=== PATIENT | male | born 1965 | race Caucasian/White ===

== ENCOUNTER 2019-07-13 10:51 | Emergency (ER) | payer BC ==
--- OUTSIDE RECORDS SUMMARY | 2019-07-13 11:08 | XMS REPORT | Summary of Care ---
:1965 Author Organization [facility] Address [address] [facility] [place] [address] Care Team Providers Name Role Phone Kiel Figueroa MD Primary Care Provider Reason for Visit Reason Comments Weight Gain Obesity Follow Up Encounter Details Date Type Department Care Team Description 06/22/2019 Office Visit [facility], Non morbid obesity, unspecified obesity type (Primary Dx); Bariatrics - Abiel Simmons MD Body mass index (BMI) of 33.0-33.9 in adult; [address] [place] Essential hypertension; [address] [place] [address] Gastroesophageal reflux disease, esophagitis presence not specified [place] [address] Allergies Active Allergy Reactions Severity Noted Date Comments Tape: Silk Or Adhesive Rash 01/19/2009 documented as of this encounter (statuses as of 06/25/2019) Medications Medication Sig Dispensed Refills Start Date End Date Status Hydrocodone-Acetamin Take 10-325 mg by 0 Active ophen (LORTAB PO) mouth. buPROPion Take 300 mg by mouth 0 Active (WELLBUTRIN XL) 300 DAILY. MG Oral TABLET SR 24 HR duloxetine Take 20 mg by mouth 0 Active (CYMBALTA) 20 MG TWICE DAILY. Oral CAPSULE ENTERIC COATED PARTICLES pregabalin (LYRICA) Take 100 mg by mouth 0 Active 100 MG Oral Cap TWICE DAILY. pantoprazole Take 1 Tab by mouth 60 Tab 3 11/20/2018 Active (PROTONIX) 40 MG DAILY. Please take Oral Tab EC Pantoprazole 40mg tablet once daily for 6 months documented as of this encounter (statuses as of 06/25/2019) Active Problems Problem Noted Date Abdominal pain, epigastric 10/14/2018 Overview: Added automatically from request for surgery [id number] Symptomatic cholelithiasis 01/23/2017 Balanitis 07/19/2016 Prosthetic joint infection 01/21/2012 Obesity 10/02/2011 WILLIAM (obstructive sleep apnea) 10/02/2011 Lumbar degenerative disc disease 08/24/2011 BMI 35.0-35.9,adult 08/24/2011 Lumbar spondylosis 12/29/2010 Elbow pain 11/29/2009 Aftercare following joint replacement 11/29/2009 Pain in joint, pelvic region and thigh 12/09/2008 Derangement of medial meniscus 09/07/2008 Sciatica 09/07/2008 Low Back Pain 09/07/2008 Internal derangement of knee 09/07/2008 Displacement of lumbar intervertebral disc 09/07/2008 Rotator cuff disorder 09/07/2008 GERD (gastroesophageal reflux disease) 09/07/2008 Depression 09/07/2008 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 05/28/2008 Vitamin D deficiency documented as of this encounter (statuses as of 06/25/2019) Immunizations Name Administration Dates Next Due Depo Medrol (80mg) 04/25/2016, 02/24/2016, 04/28/2015, 03/05/2014, 11/06/2013 Lidocaine 1% (Not Billed) 04/25/2016, 02/24/2016, 04/28/2015, 03/05/2014, 11/06/2013 documented as of this encounter Social History Tobacco Use Types Packs/Day Years Used Date Never Smoker Smokeless Tobacco: Never Used Alcohol Use Drinks/Week oz/Week Comments No coffee 3-4 cups Sex Assigned at Date Recorded Not on file Job Start Date Occupation Industry Not on file Not on file Not on file Travel History Travel Start Travel End No recent travel history available. documented as of this encounter Last Filed Vital Signs Vital Sign Reading Time Taken Comments Blood Pressure 110/62 06/22/2019 3:49 PM EDT Pulse 74 06/22/2019 3:49 PM EDT Temperature - - Respiratory Rate - - Oxygen Saturation 98% 06/22/2019 3:49 PM EDT Inhaled Oxygen Concentration - - Weight 123 kg (271 lb 1.6 oz) 06/22/2019 3:49 PM EDT Height 190.5 cm (6' 3") 06/22/2019 3:49 PM EDT Body Mass Index 33.89 06/22/2019 3:49 PM EDT documented in this encounter Progress Notes Iris Anderson MD - 06/22/2019 3:00 PM EDT PATIENT: Prasanth Talavera : 1965 DATE OF SERVICE: 06/22/2019 REFERRING PRACTITIONER: Ronni PRIMARY CARE PROVIDER: Kiel Figueroa Chief Complaint Patient presents with Weight Gain Obesity Follow Up HISTORY OF PRESENT ILLNESS: Prasanth Talavera is a 53-y.o. male who presents for follow up treatment of obesity and relateddiseases. He reports no new medical issues in the interim. His dietary compliance as reported is fair. The patient is not skipping meals. He is keeping a consistent food journal. He is eating about an unknown number of calories per day. He is not getting adequate protein. The patient reports no regular exercise. Past Medical History: Diagnosis Date Acute coronary syndrome (HCC) Atrial fibrillation (HCC) had one episode in april 2008/ lasted for 8 hrs / corrected with drugs./ had cardiac evaluation had echo was good/ done in [facility] controlled by [facility] Cardiac dysrhythmia Depression with anxiety 09/07/2008 stable Derangement of medial meniscus 09/07/2008 right knee Displacement of lumbar intervertebral disc 09/07/2008 L4-L5 / L5-S1/ had epidural shots Factor V Leiden mutation (HCC) one copy/ father had 2 copies/ no personal history of DVT or other clots. 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 Sciatica 09/07/2008 Sinusitis, chronic Vitamin D deficiency Past Surgical History: Procedure Laterality Date ARTHROSCOPY KNEE Left 07/13/2015 Procedure: ARTHROSCOPY KNEE LEFT; Surgeon: Kranthi Hanks MD; Location: [facility] MAIN OR COLONOSCOPY 02/21/2010 Procedure:COLONOSCOPY; Surgeon:DANIELLE STONE; Location:[facility] SAME DAY SURGERY; Laterality:N/A KNEE ARTHROSCOPY 1998 & 02/2005 Rt x2 LAPAROSCOPIC CHOLECYSTECTOMY N/A 01/23/2017 Procedure: LAPAROSCOPIC CHOLECYSTECTOMY; Surgeon: Arnulfo Haq MD; Location : [facility] MAIN OR NERVE BLOCK (OFFICE) - SCIATIC 08/2005 & 09/2005 Interlaminar lumbar epidural steroid block w/ epidurography OTHER HERNIA REPAIR Rt inguinal DE EGD TRANSORAL BIOPSY SINGLE/MULTIPLE N/A 11/05/2018 Procedure: EGD WITH BIOPSY; Surgeon: Arnulfo Haq MD; Location: [facility] MAIN OR DE EXCISION TURBINATE,SUBMUCOUS 1999 DE REMOVAL GALLBLADDER 01/23/2017 Dr. Haq DE REMOVE BENIGN THYROID LESION DE REPAIR OF NASAL SEPTUM 1999 level 2 endoscopic sinus surgery DE SHOULDER SURG PROC UNLISTED REVISION HIP REPLACEMENT 01/16/12 right REVISION HIP REPLACEMENT 04/02/12 right ROTATOR CUFF REPAIR 09/2003 Rt, open rotator cuff repair TENDON, FLEX, REPAIR ADVANCE 1987 tendon repair nos/ left index finger TOTAL HIP REPLACEMENT 01/24/09 right TOTAL KNEE REPLACEMENT 01/24/09 right UNLISTED PROCEDURE,MUSCULOSKELE Family History Problem Relation Age of Onset Heart Mother Heart Disease Mother Hypertension Mother Depression/Depressed Mother GI Mother Psychiatry Mother Diabetes Father niddm Clotting Disorder Father Heart Disease Father Hypertension Father Arthritis Father Cancer Father colon cancer Depression/Depressed Father Blood Disease Father factor V leuiden Genetic Father Psychiatry Father Obesity Brother Depression/Depressed Sister Psychiatry Sister Anesth Problems No family history Kidney Disease No family history Thyroid Disease No family history Alcohol/Drug No family history Allergies No family history Asthma No family history Genitourinary () No family history High Cholesterol No family history Seizures No family history Stroke No family history Respiratory No family history Thyroid No family history Social History Tobacco Use Smoking status: Never Smoker Smokeless tobacco: Never Used Substance Use Topics Alcohol use: No Comment: coffee 3-4 cups Current Outpatient Medications Medication Sig buPROPion (WELLBUTRIN XL) 300 MG Oral TABLET SR 24 HR Take 300 mg by mouth DAILY. duloxetine (CYMBALTA) 20 MG Oral CAPSULE ENTERIC COATED PARTICLES Take 20 mg by mouth TWICE DAILY. Hydrocodone-Acetaminophen (LORTAB PO) Take 10-325 mg by mouth. pantoprazole (PROTONIX) 40 MG Oral Tab EC Take 1 Tab by mouth DAILY. Please take [id number] tablet once daily for 6 months pregabalin (LYRICA) 100 MG Oral Cap Take 100 mg by mouth TWICE DAILY. No current facility-administered medications for this visit. Allergies Allergen Reactions Tape: Silk Or Adhesive Rash REVIEW OF SYSTEMS: CONSTITUTIONAL: Negative RESPIRATORY: Negative CARDIOVASCULAR: Negative GASTROINTESTINAL: Negative. GENITOURINARY:Negative MUSCULOSKELETAL: Negative NEUROLOGICAL: Negative. PSYCH: Negative. There are no exam notes on file for this visit. PHYSICAL EXAMINATION: VITALS: BP 110/62 | Pulse 74 | Ht 6' 3" (1.905 m) | Wt 271 lb 1.6 oz (123 kg ) | SpO2 98% | BMI33.89 kg/m BODY COMPOSITION AND MEASUREMENTS: BODY COMPOSITION HISTORY Body Composition 01/13/2019 06/05/2019 06/22/2019 Weight 274 lb 14.4 oz 274 lb 1.6 oz 271 lb 1.6 oz LEAN BODY MASS (lbs) - 175.9 172.8 BODY FAT MASS (lbs) - 98.2 98.3 BMI (Calculated) - 34.26 33.89 Body Fat % - 35.8 36.3 BASAL METABOLIC RATE (kcal) - 4 3 EXCESS BODY FAT (lbs) - 67 67.9 VISCERAL FAT AREA (cm2) - 228.6 227 LEAN BODY MASS DEFICIT (lbs) - 0 0 NECK CIRCUMFERENCE (in) - 18 - WAIST CIRCUMFERENCE (in) - 50 - HIP CIRCUMFERENCE (in) - 48 - GENERAL: No acute distress; moderately obese PULMONARY: Clear to auscultation bilaterally CARDIOVASCULAR: Regular rate and rhythm; no murmurs, no rubs, no gallops ABDOMEN: Soft, non tender, no organomegaly, no masses appreciated. truncal adiposity present MUSCULOSKELETAL: no clubbing, cyanosis or edema NEUROLOGICAL: Alert and oriented x 3 PSYCH: Appropriate mood and affect LABORATORY STUDIES: Triglycerides Date Value Ref Range Status 09/23/2013 145 10 - 150 mg/dl Final HDL Cholesterol Date Value Ref Range Status 09/23/2013 23 >40 mg/dl Final LDL Cholesterol Date Value Ref Range Status 09/23/2013 108 88 - 162 MG/DL Final Comment: TRIGLYCERIDES GREATER THAN 400 MG/DL INVALIDATES THE LDL RESULT VIT D, 25-HYDROXY Date Value Ref Range Status 09/23/2013 24.3 30.0 - 100.0 ng/ml Final Comment: Comment: <20 ng/ml Deficiency 20 - <30 ng/ml Insufficient 30 - 100 ng/ml Sufficiency >100 ng/ml Potential Toxicity TSH Date Value Ref Range Status 09/23/2013 1.78 0.32 - 5.00 uIu/ml Final IMPRESSION: ICD-9-CM ICD-10-CM 1. Non morbid obesity, unspecified obesity type 278.00 E66.9 2. Body mass index (BMI) of 33.0-33.9 in adult V85.33 Z68.33 3. Essential hypertension 401.9 I10 4. Gastroesophageal reflux disease, esophagitis presence not specified 530.81 K21.9 PLAN: Prasanth Talavera is a 53-y.o. year-old male with Body mass index is 33.89 kg/m.. Obesity Class I Weight is decreased 3.0 lbs in the interim; this reflects a(n) decrease in lean body mass of 3.1 lbs(2.2 lbs of which was total body water) and increase in fat mass of 0.5 lbs Continue with 1600 calories per day; 45 g protein per meal; 30 g carbs per meal Moderate intensity exercise for 30 minutes, at least 5 days per week Hypertension Well controlled No medication changes at this time GERD Likely some element of fat mass effect Expect improvement in symptoms as weight loss progresses Follow up: 4 weeks Author: Iris Anderson MD 06/25/2019 10:22 documented in this encounter Plan of Treatment Date Type Specialty Care Team Description 07/08/2019 Office Visit Urology Carley Petersen CRNP [address] [place] [address] 07/24/2019 Office Visit Bariatrics Iris Anderson MD [address] [place] [place] [address] Health Maintenance Due Date Last Done Comments HIV SCREENING 1978 ZOSTER IMMUNIZATION SERIES 2013 (1 of 2) LIPID DISORDER SCREENING 09/23/2018 09/23/2013 INFLUENZA VACCINE (#1) 2019 COLONOSCOPY SCREENING 02/22/2020 02/21/2010 DEPRESSION SCREENING 06/05/2020 06/05/2019, 08/24/2011 DIABETES SCREENING 06/05/2020 06/05/2019, 10/14/2018, 01/03/2017, Additional history exists HEPATITIS C SCREENING Completed 09/23/2013 HPV IMMUNIZATION SERIES Aged Out No longer eligible based on patient's age to complete this topic MENINGOCOCCAL VACCINE IMM Aged Out No longer eligible based on patient's age to complete this topic PNEUMOCOCCAL 0-64 YRS Aged Out No longer eligible based on patient's age to complete this topic documented as of this encounter Implants Implanted Type Area Bunch Breaker Machine Operator Device Shelf Model / Identifier Expiration Serial / Lot Date Bone Cement, Double 80gm - [id number] Right: DEPUY [id number] / Implanted: Qty: 1 on 01/24/2009 at [facility] / [id number] Magnum Modular Head Right: BIOMET [id number] / Implanted: Qty: 1 on 01/24/2009 at [facility] / [id number] Nexgen Macro Tib Plate Size 9 - [id number] Right: JESSICA LEON 5980-57 [id number] / Implanted: Qty: 1 on 01/24/2009 at [facility] / [id number] Lps-Flex Taper Plugs - [id number] Right: JESSICA LEON / Implanted: Qty: 1 on 01/24/2009 at [facility] / [id number] Lps-Flex Option Femoral G Rt - [id number] Right: JESSICA LEON 5964-17- [id number] / Implanted: Qty: 1 on 01/24/2009 at [facility] / [id number] Patella, 35mm Nexgen - [id number] Right: JESSICA LEON / Implanted: Qty: 1 on 01/24/2009 at [facility] / [id number] Art Surface 12mm Blue - [id number] Right: JESSICA LEON / Implanted: Qty: 1 on 01/24/2009 at [facility] / [id number] Magnum Cup Right: BIOMET [id number] / Implanted: Qty: 1 on 01/24/2009 at [facility] / [id number] Magnum Taper Adapter Right: BIOMET [id number] / Implanted: Qty: 1 on 01/24/2009 at [facility] / [id number] Magnum Taperloc Stem Right: BIOMET [id number] / Implanted: Qty: 1 on 01/24/2009 at [facility] / [id number] Trilogy Long Std Liner 73x55um - [id number] Right: JESSICATRAVIS LEON 6305- 068-40 / Implanted: Qty: 1 on 01/09/2012 at [facility] / [id number] Trabecular Metal Mod. Acetabular System Right: JESSICA LEON [id number] -[id number] / Implanted: Qty: 1 on 01/09/2012 at [facility] / [id number] Biolox Option Ceramic Femoral Head Right: JESSICA EDWARD [id number] / Implanted: Qty: 1 on 01/09/2012 at [facility] / [id number] Bone Cement, Double 80gm - [id number] Right: DEPUY [id number] / Implanted: Qty: 4 on 01/16/2012 at [facility] / [id number] Prostalac Acetabular Cup Right: DEPUY [id number] / Implanted: Qty: 1 on 01/16/2012 at [facility] / [id number] Prostalac Hip Stem Right: DEPUY 1541-38-000 / Implanted: Qty: 1 on 01/16/2012 at [facility] / [id number] Articul/Rylan Femoral Head Right: DEPUY 1365-21-000 / Implanted: Qty: 1 on 01/16/2012 at [facility] / [id number] Trilogy Long Std Liner 42p02rw - [id number] Right: JESSICATRAVIS VIRGENALL 6305- 070-40 / Implanted: Qty: 1 on 04/02/2012 at [facility] / [id number] Bead Stem 8"Fc 16.5/200 Bwd Rt - [id number] Hip JESSICATRAVIS VIRGENALL [id number] -[id number] / Implanted: Qty: 1 on 04/02/2012 at [facility] / [id number] Tm Shell 70mm Right: JESSICA LEON / Implanted: Qty: 1 on 04/02/2012 at [facility] / [id number] Biolox Fermoral Head Right: JESSICA LEON [id number] / Implanted: Qty: 1 on 04/02/2012 at [facility] / [id number] Taperloc Femoral Stem Left: Hip BIOMET [id number] / Implanted: Qty: 1 on 07/30/2012 at [facility] / [id number] Ringloc Liner Left: Hip BIOMET [id number] / Implanted: Qty: 1 on 07/30/2012 at [facility] / [id number] Ringloc Cup Left: Hip BIOMET [id number] / Implanted: Qty: 1 on 07/30/2012 at [facility] / [id number] Biolox Ceramic Head Left: Hip BIOMET 650-1057 / Implanted: Qty: 1 on 07/30/2012 at [facility] / [id number] Biolox Adapter Left: Hip BIOMET 650-1067 / Implanted: Qty: 1 on 07/30/2012 at [facility] / [id number] documented as of this encounter Results Not on filedocumented in this encounter Visit Diagnoses Diagnosis Non morbid obesity, unspecified obesity type - Primary Body mass index (BMI) of 33.0-33.9 in adult Body Mass Index 33.0-33.9, adult Essential hypertension Unspecified essential hypertension Gastroesophageal reflux disease, esophagitis presence not specified documented in this encounter Insurance Payer Benefit Plan / Subscriber ID Effective Dates Phone Address Type Group MAYTE YOUNG xxxxxxxxxxxx 2018-Present Mayte AQUINO PPO Guarantor Name Account Type Relation to Date of Phone Billing Patient Address Prasanth Talavera Personal/Family 1965 [id number] [facility] (Home) [address] [place], [place] (Work) [address] documented as of this encounter
--- OUTSIDE RECORDS SUMMARY | 2019-07-13 11:08 | XMS REPORT | Continuity of Care Document ---
:1965 External Reference #:[id number] Author Name Gary Davenport MD (transmitted by agent of provider Rosalinda Zullinger) Address [address], [place] [address] Care Team Providers Name Role Phone Kiel Figueroa MD - Family Medicine Care Team Information [employer] Problems Active Problems Provider Date Obstructive sleep apnea syndrome Honey Faustin MD Onset: 12/16/2014 Morbid obesity Honey Faustin MD Onset: 12/16/2014 Central sleep apnea syndrome Jolene Hernandez DNP, RN, PIPELINE TECHNICIAN-BC Onset: 2014 Note: obstructive and central 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 Insomnia Jolene Hernandez DNP, RN, Onset: 12/13/2017 [facility]- Hypersomnia Jolene Hernandez DNP, RN, Onset: 12/13/2017 [facility]- Social History Type Date Description Comments Sex Unknown ETOH Use Denies alcohol use Tobacco Use Start: Unknown Patient has never smoked Recreational Drug Use Never Used Drugs Smoking Status Reviewed: 06/30/19 Patient has never smoked Exercise Type/Frequency Exercises sporadically Allergies, Adverse Reactions, Alerts Description No Known Drug Allergies Medications Active Medications SIG Qnty Indications Ordering Provider Date Bilateral Afo's Bilateral AFO's 2units Gary Davenport MD 01/11/2016 dx: g60.3 Lyrica 1 by mouth three Unknown 12/15/2014 100mg Capsules times a day Lortab as needed Unknown 12/15/2014 10-325mg Tablets Amoxicillin 4 tablets 1 hour Unknown 12/15/2014 500mg before dental work Capsules Acyclovir 1 by mouth 5 x d Unknown 12/15/2014 200mg for 5 days as Capsules needed Bupropion HCL ER 1 by mouth every Unknown (XL) day 300mg Tablets ER 24HR Protonix take 1 tab by Unknown 40mg Packet mouth daily Immunizations Description No Information Available Vital Signs Date Vital Result Comment 06/30/2019 11:01am Height 75 inches 6'3" Weight 266.00 lb Heart Rate 68 /min BP Systolic 118 mmHg BP Diastolic 88 mmHg BMI (Body Mass Index) 33.2 kg/m2 12/13/2017 11:45am Height 75 inches 6'3" Weight 280.00 lb Heart Rate 80 /min BP Systolic Sitting 130 mmHg BP Diastolic Sitting 80 mmHg Respiratory Rate 16 /min O2 % BldC Oximetry 98 % BMI (Body Mass Index) 35.0 kg/m2 Results Test Date Facility Test Result H/L Range Note Laboratory test 06/30/2019 [facility] TSH 1.59 mcIU/mL Normal 0.34-5.[address] ([place] [address] Stim [facility]) [phone] Vitamin B12 308 pg/mL Normal 180-914 1 Folic Acid (Folate) 8.67 ng/mL >3.99 Methylmalonic Acid Mma <pending> Laboratory test 06/30/2019 [facility] Miscellaneous Test < pending> finding [address] [place] [address] [phone] Normal Range 180 to 914 Indeterminate Range 145 to 180 Deficient Range <145 Procedures Description No Information Available Medical Devices Description No Information Available Encounters Description No Information Available Assessments Date Code Description Provider 06/30/2019 G60.3 Idiopathic progressive neuropathy Gary Davenport MD Plan of Treatment Future Appointment(s):08/12/2019 10:45 am - Gary Davenport MD at [facility]/30/2019 - Gary Davenport MDG60.3 Idiopathic progressive neuropathyComments:Has a gradually progressive peripheral neuropathy already documented on prior emg/ncv. I discussed we need to repeat b12 levels and some other serologies but if we find no clear etiology would wonder if the neuropathy is secodnary to ground zero exposure and there is documentation of an increased risk of neuropathy in that population. I discussed that his neuropathy is worsening and unless we identify a treatable cause may well limit his function even before the age of nursing home. If I find no specific cause I am recommending an evaluation with a neuromuscular expert - perhaps one at an academic center in [facility] who may have expertise in ground zero cases.Will increase cymbalta to 30mg in am and 60mg in pmFollow up: 4 WEEKS Functional Status Description No Information Available Mental Status Description No Information Available Referrals Description No Information Available
[2019-07-13 12:03] LABS: ABS Eosinophils 0.1 10^3/ul (0-0.6); ABS Lymphocytes 1.7 10^3/ul (1.0-4.8); ABS Monocytes 0.3 10^3/ul (0-0.8); ABS Neutrophils 2.8 10^3/ul (1.5-7.7); Eosinophil % 2.4 %; Hematocrit 37 % (42-52); Hemoglobin 13.5 g/dL (14.0-18.0); Lymphocyte % 34.1 %; Mean Corpuscular HGB Conc 36 g/dL (31-36); Mean Corpuscular Hemoglobin 33 pg (27-31); Mean Corpuscular Volume 91 fL (80-94); Mean Platelet Volume 7.3 fL (7.4-10.4); Nucleated Red Blood Cells % 0.1; Platelet Count 199 10^3/uL (150-450); Red Blood Count 4.09 10^6 /uL (4.18-5.48); Red Cell Distribution Width 13 % (10-15); White Blood Count 4.9 10^3/uL (3.5-10.8)
[2019-07-13 12:07] LABS: INR 1.05 (0.82-1.09)
[2019-07-13 12:19] LABS: Albumin 4.1 g/dL (3.2-5.2); Albumin/Globulin Ratio 1.5 (1-3); BUN/Creatinine Ratio 17.7 (8-20); Calcium 9.1 mg/dL (8.6-10.3); EGFR African American 98.4 (>60); EGFR Non-African American 81.3 (>60); Globulin 2.7 g/dL (2-4); Potassium 4.1 mmol/L (3.5-5.0); Total Bilirubin 0.3 mg/dL (0.2-1.0); Total Protein 6.8 g/dL (6.4-8.9)
--- NOTE | 2019-07-13 12:20 | ED ---
HPI Chest Pain - HPI Summary HPI Summary: This pt is a 53 y/o male presenting to [facility] c/o chest pain worsening over the last few days with cough. Pt reports his chest tightness began a few weeks ago but it has worsen over the last few days. Additionally notes he has associated nonproductive cough. He states feeling ill 2 days ago and slept all day. Pt describes his symptoms as a "chest cold." This morning pt describes his chest pain as tight and burning. Denies fever, chills, nausea, vomiting, leg swelling. PMHx includes peripheral neuropathy. Denies hx of DM, HTN, high cholesterol, blood clots. Pt is followed up by Dr. Davenport for peripheral neuropathy. Denies tobacco use. - History of Current Complaint Chief Complaint: EDChestWallPain Time Seen by Provider: 07/13/19 12:07 Hx Obtained From: Patient Onset/Duration: Started Days Ago, Still Present Timing: Lasting Days Current Severity: Moderate Pain Intensity: 4 Pain Scale Used: 0-10 Numeric Chest Pain Location: Diffuse Chest Pain Radiates: No Character: Burning, Tightness Aggravating Factor(s): Nothing Alleviating Factor(s): Nothing Associated Signs and Symptoms: Positive: Chest Pain, Cough. Negative: Fever, Chills, Nausea, Calf Pain/Swelling, Vomiting - Allergy/Home Medications Allergies/Adverse Reactions: Allergies Allergy/AdvReac Type Severity Reaction Status Date / Time No Known Allergies Allergy Verified 05/28/18 09:25 PMH/Surg Hx/FS Hx/Imm Hx Endocrine/Hematology History: Denies: Hx Diabetes Cardiovascular History: Reports: Hx Angina, Hx Hypercholesterolemia Denies: Hx Hypertension, Hx Pacemaker/ICD GI History: Reports: Hx Gastroesophageal Reflux Disease History: Denies: Hx Dialysis, Hx Renal Disease Musculoskeletal History: Reports: Hx Back Problems - chronic back/leg pain Sensory History: Reports: Hx Contacts or Glasses Denies: Hx Hearing Aid Opthamlomology History: Reports: Hx Contacts or Glasses Neurological History: Reports: Hx Peripheral Neuropathy Psychiatric History: Reports: Hx Depression Denies: Hx Panic Disorder - Surgical History Surgery Procedure, Year, and Place: BILATERAL HIPS REPLACEMENT. RT KNEE REPLACEMENT. RT ROTATOR CUFF REPAIR, sinus,[place] Infectious Disease History: No Infectious Disease History: Denies: Traveled Outside the [place] in Last 30 Days - Family History Known Family History: Positive: Cardiac Disease - Mother with MS and father with MS and bypass - Social History Alcohol Use: Occasionally Substance Use Type: Reports: None Smoking Status (MU): Never Smoked Tobacco Review of Systems Negative: Fever, Chills Positive: Chest Pain Positive: Cough Negative: Vomiting, Nausea Negative: Edema All Other Systems Reviewed And Are Negative: Yes Physical Exam - Summary Physical Exam Summary: GENERAL: Patient is a well-developed and nourished male who is lying comfortable in the stretcher. Patient is not in any acute respiratory distress. HEAD AND FACE: Normocephalic EYES: PERRLA, EOMI x 2. EARS: Hearing grossly intact. MOUTH: Oropharynx within normal limits. NECK: Supple, trachea is midline, no adenopathy, no JVD, no carotid bruit. CHEST: Symmetric, no tenderness at palpation LUNGS: Clear to auscultation bilaterally. No wheezing or crackles. CVS: Regular rate and rhythm, S1 and S2 present, no murmurs or gallops appreciated. ABDOMEN: Soft, non-tender. Bowel sounds are normal. No abnormal abdominal pulsations. EXTREMITIES: Full ROM in all major joints, no edema, no cyanosis or clubbing. NEURO: Alert and oriented x 3. No acute neurological deficits. Speech is normal and follows commands. SKIN: Dry and warm Triage Information Reviewed: Yes Vital Signs On Initial Exam: Initial Vitals Temp Pulse Resp BP Pulse Ox 97.7 F 78 18 137/80 100 07/13/19 10:57 07/13/19 10:57 07/13/19 10:57 07/13/19 10:57 07/13/19 10:57 Vital Signs Reviewed: Yes Diagnostics - Vital Signs Vital Signs Temp Pulse Resp BP Pulse Ox 07/13/19 10:57 97.7 F 78 18 137/80 100 - Laboratory Lab Results: Lab Results 07/13/19 07/13/19 Range/Units 11:45 11:45 WBC 4.9 (3.5-10.8) 10^3/uL RBC 4.09 L (4.18-5.48) 10^6 /uL Hgb 13.5 L (14.0-18.0) g/dL Hct 37 L (42-52) % MCV 91 (80-94) fL MCH 33 H (27-31) pg MCHC 36 (31-36) g/dL RDW 13 (10-15) % Plt Count 199 (150-450) 10^3/uL MPV 7.3 L (7.4-10.4) fL Neut % (Auto) 56.9 % Lymph % (Auto) 34.1 % Wright % (Auto) 5.9 % Eos % (Auto) 2.4 % Baso % (Auto) 0.7 % Absolute Neuts (auto) 2.8 (1.5-7.7) 10^3/ul Absolute Lymphs (auto) 1.7 (1.0-4.8) 10^3/ul Absolute Monos (auto) 0.3 (0-0.8) 10^3/ul Absolute Eos (auto) 0.1 (0-0.6) 10^3/ul Absolute Basos (auto) 0.0 (0-0.2) 10^3/ul Absolute Nucleated RBC 0.0 10^3/ul Nucleated RBC % 0.1 INR (Anticoag Therapy) 1.05 (0.82-1.09) Result Diagrams: 07/13/19 11:45 07/13/19 11:45 Lab Statement: Any lab studies that have been ordered have been reviewed, and results considered in the medical decision making process. - Radiology Chest XR Radiology Interpretation Completed By: Radiologist Summary of Radiographic Findings: IMPRESSION: No active cardiopulmonary disease. Dr. Augustin has reviewed this report. - EKG 10:51 Cardiac Rate: NL - at 72 bpm EKG Rhythm: Sinus Rhythm Summary of EKG Findings: Intraventricular conduction delay. Re-Evaluation - Re-Evaluation First Eval Re-Evaluation Time: 13:02 Comment: Pt reports he feels ok. Will do a walking pulse ox. Second Eval Re-Evaluation Time: 13:10 Comment: Pt saturating at 99% on room air. Pt only went down to 98% on room air while ambulating. Chest Pain Course/Dx - Course Assessment/Plan: Pt is a 53 y/o male presenting to [facility] c/o chest pain worsening over the last few days with associated nonproductive cough. He describes his symptoms as "chest cold.". Physical exam is unremarkable. Lab results are unremarkable except for hemoglobin of 13.5 and hematocrit of 37. Chest XR shows no active cardiopulmonary disease. In the ED course the pt was given duoneb. Pt saturating at 99% on room air. Pt only went down to 98% on room air while ambulating. I discussed results with patient and he reports feeling better. He is hemodynamically stable and safe for discharge. Strict return precautions given and he will otherwise follow up with his PCP. Pt was given a prescription for albuterol inhaler. - Diagnoses Provider Diagnoses: SOB (shortness of breath) Discharge ED - Sign-Out/Discharge Documenting (check all that apply): Patient Departure - Discharge home Patient Received Moderate/Deep Sedation with Procedure: No - Discharge Plan Condition: Stable Disposition: HOME Prescriptions: Albuterol HFA INHALER* [Ventolin HFA Inhaler*] 1 - 2 puff INH Q6H PRN #1 [id number] PRN Reason: Wheezing Patient Education Materials: Shortness of Breath (ED) Referrals: Keil Figueroa MD [Primary Care Provider] - Additional Instructions: Follow up with your primary care physician in 1-3 days. RETURN TO THE EMERGENCY DEPARTMENT FOR CHANGING OR WORSENING SYMPTOMS. - Billing Disposition and Condition Condition: STABLE Disposition: Home - Attestation Statements Document Initiated by Scribe: Yes Documenting Scribe: Yazmin Byrne Provider For Whom Brendae is Documenting (Include Credential): Mackenzie Augustin MD Scribe Attestation: I, Yazmin Byrne, scribed for Mackenzie Augustin MD on 07/13/19 at 2054. Scribe Documentation Reviewed: Yes Provider Attestation: The documentation as recorded by the Yazmin justice accurately reflects the service I personally performed and the decisions made by me, Mackenzie Augustin MD Status of Scribe Document: Viewed
[2019-07-13] MEDS ORDERED: Albuterol/Ipratropium NEB.SOL* Albuterol 2.5 MG/Ipratropium 0.5 MG 3 ML INH ONE (12:25)
[2019-07-13 15:53] VITALS: BP 117/78
== END 2019-07-13 15:45 | disposition home or self-care (01) ==
LOC: ED 10:51
DX: R06.02 Shortness of breath (principal); R07.9 Chest pain, unspecified; R05 Cough; K21.9 Gastro-esophageal reflux disease without esophagitis; I20.9 Angina pectoris, unspecified; E78.00 Pure hypercholesterolemia, unspecified; F32.9 Major depressive disorder, single episode, unspecified
CPT/HCPCS: 36415; 71046; 80053; 83880; 84484; 85025; 85379; 85610; 93005; 99283; A9270-GY